=== PATIENT | male | born 1975 | race Caucasian/White ===

== ENCOUNTER 2024-03-02 16:34 | Emergency (ER) | payer SELFPAY ==
[2024-03-02 16:48] VITALS: BMI 27.4
[2024-03-02 17:53] LABS: BASO % 0.5 % (0-2.0); HEMATOCRIT 45.5 % (35.4-49); HEMOGLOBIN 15.7 GM/dL (11.7-16.9); MCH 31.2 pg (25.7-33.7); MCHC 34.5 g/dl (32.0-35.9); MEAN CELL VOLUME 90.4 fl (80-96); MEAN PLT VOLUME 7.8 fl (7.5-11.1); MONO % 7.2 % (3.8-10.2); NEUT % 70.3 % (42.8-82.8); PLATELET COUNT 294 10^3/uL (134-434); RBC 5.03 M/mm3 (4.00-5.60); RDW 13.8 % (11.9-15.9); WHITE BLOOD COUNT 9.2 K/mm3 (4.0-10.0)
[2024-03-02 18:10] LABS: POTASSIUM 4.5 mmol/L (3.5-5.1)
[2024-03-02 18:13] LABS: CALCIUM 9.7 mg/dL (8.5-10.1)
[2024-03-02 18:14] LABS: ALBUMIN 4.1 g/dl (3.4-5.0); BLOOD UREA NITROGEN 10.1 mg/dL (7-18)
[2024-03-02 18:17] LABS: CREATININE 0.8 mg/dL (0.55-1.3)
[2024-03-02 18:18] LABS: BILIRUBIN,TOTAL 0.5 mg/dL (0.2-1); TOT PROT 7.9 g/dl (6.4-8.2)
[2024-03-02 18:37] VITALS: BP 154/94; PULSE 64; RESP 16; TEMP 98.4
== END 2024-03-02 18:40 | disposition home or self-care (01) ==
LOC: JER 16:34
DX: I10 Essential (primary) hypertension (principal)
CPT/HCPCS: 36415; 80053; 84484; 85025; 93005; 93010; 99284-25